=== PATIENT | female | born 1935 | race Two or more races ===

== ENCOUNTER 2016-11-15 12:13 | Emergency (ER) | payer OTHER ==
[~2016-11-15] VITALS: Ht 121.9 cm; Wt 48.5 kg
[~2016-11-15 12:13] MED LIST: ALOG1TAB8 PO; ATOR40TA PO; LISI40TA4 PO
[2016-11-15 13:18] VITALS: BP 126/62
[2016-11-15] MEDS ORDERED: HYDROCODONE/APAP 5/325MG 1 EACH TABLET PO ONE (14:30)
[2016-11-15] MEDS ORDERED: HYDROCODONE/APAP 5/325MG 1 EACH TABLET ONE (14:32)
== END 2016-11-15 15:55 | disposition home or self-care (01) ==
LOC: ER 12:16
DX: M25.511 Pain in right shoulder (principal); E11.9 Type 2 diabetes mellitus without complications; I10 Essential (primary) hypertension; M19.90 Unspecified osteoarthritis, unspecified site; M81.0 Age-related osteoporosis without current pathological fracture; F17.200 Nicotine dependence, unspecified, uncomplicated
CPT/HCPCS: 73030; 99284; A4606; Z7610

== ENCOUNTER 2017-03-26 17:35 | Inpatient (IN) | payer OTHER ==
[~2017-03-26] VITALS: Ht 165.1 cm; Wt 53.5 kg
[2017-03-26] VITALS (9 sets, daily range): BP systolic 81–137; BP diastolic 45–67
[2017-03-26] MEDS ORDERED: methylPREDNISolone SOD SUCC 125 MG/2ML VIAL ONE (18:00)
[2017-03-26] MEDS ORDERED: IV NS 0.9% 1,000 ML ONE (18:00)
[2017-03-26] MEDS ORDERED: IPRATROPIUM NEB FS 0.5 MG/2.5 ML AMPUL.NEB NEB ONE ×2 (18:00→19:00)
[2017-03-26] MEDS ORDERED: IV SET PRIMARY 1 EA INFUS.SET MC ONE (18:00)
[2017-03-26] MEDS ORDERED: IV NS 0.9% 1,000 ML BAG IV ONE (18:00)
[2017-03-26] MEDS ORDERED: methylPREDNISolone SOD SUCC 125 MG/2ML VIAL IV ONE (18:00)
[2017-03-26] MEDS ORDERED: ALBUTEROL FS 2.5 MG/3 ML VIAL.NEB NEB ONE ×2 (18:00→19:00)
[2017-03-26] MEDS ORDERED: IPRATROPIUM NEB FS 0.5 MG/2.5 ML AMPUL.NEB ONE ×2 (18:04→19:01)
[2017-03-26] MEDS ORDERED: ALBUTEROL FS 2.5 MG/3 ML VIAL.NEB ONE ×2 (18:04→19:01)
[2017-03-26 18:13] LABS: BASOPHILS % (AUTO) 0.7 % (0.0-2.0); EOSINOPHILS # (AUTO) 0.4 /CMM (0.0-0.7); EOSINOPHILS % (AUTO) 6.8 % (0.0-6.0); HEMATOCRIT 40 % (33-45); HEMOGLOBIN 12.9 g/dL (11.5-14.8); LYMPHOCYTES # (AUTO) 0.8 /CMM (0.8-4.8); LYMPHOCYTES % (AUTO) 14.1 % (20.0-44.0); MEAN CORPUSCULAR HEMOGLOBIN 31 PG (26.0-33.0); MEAN CORPUSCULAR HGB CONC 32 g/dl (31.0-36.0); MEAN CORPUSCULAR VOLUME 95 fL (82-100); MONOCYTES # (AUTO) 0.4 /CMM (0.1-1.30); MONOCYTES % (AUTO) 7.8 % (2.0-12.0); NEUTROPHILS # (AUTO) 3.8 /CMM (1.8-8.9); NEUTROPHILS % (AUTO) 70.6 % (43.0-81.0); PLATELET COUNT (AUTO) 307 /CMM (150-450); RDW COEFFICIENT OF VARIATION 16.2 (11.5-15.0); RED BLOOD CELL COUNT(AUTO) 4.22 MIL/uL (4.0-5.2); WHITE BLOOD COUNT (AUTO) 5.4 K/uL (4.3-11.0)
[2017-03-26 18:20] LABS: CALCIUM, SERUM 8.2 mg/dL (8.5-10.1); CREATININE 0.8 mg/dL (0.6-1.3); POTASSIUM 3.9 mmol/L (3.5-5.1)
[2017-03-26 18:31] LABS: TROPONIN I 1.058 ng/mL (0.00-0.056)
[2017-03-26] MEDS ORDERED: DAPA10TA PO (18:37)
[2017-03-26] MEDS ORDERED: ASPIRIN 81 MG TAB.CHEW ONE (18:42)
[2017-03-26] MEDS ORDERED: ASPIRIN 81 MG TAB.CHEW PO ONE (19:00)
[2017-03-26] MEDS ORDERED: ONDANSETRON HCL/PF 4 MG/2 ML VIAL ONE (19:12)
[2017-03-26] MEDS ORDERED: MORPHINE SULFATE INJ 4 MG/ML DISP.SYRIN ONE (19:12)
[2017-03-26] MEDS ORDERED: MORPHINE SULFATE INJ 2 MG/ML DISP.SYRIN IV ONE (19:30)
[2017-03-26] MEDS ORDERED: ONDANSETRON HCL/PF - ER 4 MG/2 ML VIAL IV ONE (19:30)
[2017-03-26] MEDS ORDERED: PROPOFOL 20 ML IV ONE (19:37)
[2017-03-26] MEDS ORDERED: PROPOFOL 100 ML IV ONE (19:40)
[2017-03-26] MEDS ORDERED: IV SET PRIMARY PUMP SET 1 EA INFUS.SET MC ONE ×2 (19:41→22:05)
[2017-03-26] MEDS ORDERED: PROPOFOL 100 ML IV PRN ×2 (20:00→22:30)
[2017-03-26] MEDS ORDERED: PROPOFOL 200 MG/20 ML VIAL IV ONE (20:00)
[2017-03-26] MEDS ORDERED: HEPARIN SODIUM,PORCINE/PF 50 UNIT/5 ML DISP.SYRIN IV ONE (20:30)
[2017-03-26] MEDS ORDERED: HEPARIN SODIUM, PORCINE 5000 UNITS/1 ML VIAL ONE (20:38)
[2017-03-26] MEDS ORDERED: FUROSEMIDE 40 MG/4 ML VIAL IV SCH (21:30)
[2017-03-26] MEDS: ASPIRIN 325 MG TABLET PO SCH (21:30)
[2017-03-26] MEDS: METOPROLOL TARTRATE 25 MG TABLET PO SCH (21:30)
[2017-03-26 21:55] LABS: APPEARANCE,URINE CLEAR (CLEAR); BILIRUBIN,URINE NEGATIVE (NEGATIVE); BLOOD, URINE TRACE Ery/uL (NEGATIVE); COLOR,URINE YELLOW (YELLOW); KETONES,URINE NEGATIVE (NEGATIVE); LEUKOCYTE ESTERASE ,URINE NEGATIVE (NEGATIVE); NITRITE, URINE NEGATIVE (NEGATIVE); PROTEIN,URINE 1+ mg/dl (NEGATIVE); UGLUCOSE 3+ mg/dL (NEGATIVE); UROBILINOGEN,URINE 0.2 EU/dL (0.2)
[2017-03-26 22:00] LABS: BACTERIA,URINE Rare /HPF (None Seen); SQUAMOUS EPITHELIAL CELL,UR Few /HPF (None Seen); WBC,URINE NONE SEEN /HPF (0-3)
[2017-03-26] MEDS ORDERED: IPRATROPIUM NEB FS 0.5 MG/2.5 ML AMPUL.NEB NEB PRN (22:00)
[2017-03-26] MEDS ORDERED: ATORVASTATIN 40 MG TABLET ONE (22:04)
[2017-03-26] MEDS ORDERED: PANTOPRAZOLE 40 MG VIAL ONE (22:04)
[2017-03-26] MEDS ORDERED: FUROSEMIDE 20 MG/2 ML VIAL ONE (22:04)
[2017-03-26] MEDS ORDERED: CLOPIDOGREL BISULFATE 75 MG TABLET ONE (22:04)
[2017-03-26] MEDS: CLOPIDOGREL BISULFATE 75 MG TABLET PO SCH (22:13)
[2017-03-26] MEDS: PANTOPRAZOLE 40 MG VIAL IV SCH (22:13)
[2017-03-26] MEDS: ATORVASTATIN 40 MG TABLET PO SCH (22:13)
[2017-03-26] MEDS: FUROSEMIDE 20 MG/2 ML VIAL IV SCH (22:14)
[2017-03-26] MEDS ORDERED: HEPARIN INFUSION/D5W 500 ML IV ONE (22:26)
[2017-03-26 22:30] LABS: INR 0.95 (0.87-1.13); PROTHROMBIN TIME 10.1 SECS (9.5-12.7)
[2017-03-26] MEDS ORDERED: NOREPINEPHRINE 16 MG in IV D5W 500 ML IV PRN (22:30)
[2017-03-26] MEDS: HEPARIN INFUSION/D5W 500 ML IV PRN (22:44)
[2017-03-27] VITALS (56 sets, daily range): BP systolic 84–116; BP diastolic 44–60
[2017-03-27] MEDS ORDERED: INSULIN REGULAR, HUMAN 100 UNIT/ML 3 ML VIAL SQ PRN (01:00)
[2017-03-27] MEDS ORDERED: DEXTROSE 50%-WATER 50 ML DISP.SYRIN IV PRN (01:00)
[2017-03-27 05:12] LABS: EOSINOPHILS % (AUTO) 0.4 % (0.0-6.0); HEMATOCRIT 39 % (33-45); HEMOGLOBIN 12.7 g/dL (11.5-14.8); LYMPHOCYTES # (AUTO) 0.2 /CMM (0.8-4.8); LYMPHOCYTES % (AUTO) 2.6 % (20.0-44.0); MEAN CORPUSCULAR HEMOGLOBIN 31 PG (26.0-33.0); MEAN CORPUSCULAR HGB CONC 33 g/dl (31.0-36.0); MEAN CORPUSCULAR VOLUME 96 fL (82-100); MONOCYTES # (AUTO) 0.2 /CMM (0.1-1.30); MONOCYTES % (AUTO) 1.6 % (2.0-12.0); NEUTROPHILS # (AUTO) 8.9 /CMM (1.8-8.9); NEUTROPHILS % (AUTO) 95.4 % (43.0-81.0); PLATELET COUNT (AUTO) 276 /CMM (150-450); RDW COEFFICIENT OF VARIATION 15.7 (11.5-15.0); RED BLOOD CELL COUNT(AUTO) 4.05 MIL/uL (4.0-5.2); WHITE BLOOD COUNT (AUTO) 9.3 K/uL (4.3-11.0)
[2017-03-27] MEDS: PROPOFOL 100 ML IV PRN ×3 (05:20→18:28)
[2017-03-27 05:27] LABS: ALBUMIN 2.9 g/dL (3.4-5.0); BILIRUBIN,TOTAL 0.3 mg/dL (0.2-1.0); CALCIUM, SERUM 7.6 mg/dL (8.5-10.1); CREATININE 0.8 mg/dL (0.6-1.3); POTASSIUM 4.2 mmol/L (3.5-5.1); TOTAL PROTEIN, SERUM 5.7 g/dL (6.4-8.2)
[2017-03-27] MEDS ORDERED: HEPARIN SODIUM, PORCINE 5000 UNITS/1 ML VIAL ONE (05:28)
[2017-03-27] MEDS ORDERED: HEPARIN SODIUM, PORCINE 5000 UNITS/1 ML VIAL IV ONE (05:30)
[2017-03-27] MEDS: BLOOD SUGAR DIAGNOSTIC 1 EACH STRIP IN SCH ×4 (05:46→23:46)
[2017-03-27] MEDS ORDERED: ALBUTEROL HALF STRENGTH 1.25 MG/3 ML VIAL.NEB NEB PRN (07:35)
[2017-03-27 07:56] LABS: ABG BASE EXCESS -7.1 mmol/L; ABG OXYGEN SATURATION 94.2 % (92.0-98.5); ABG PCO2 42.3 mmHg (35.0-45.0); ABG PH 7.278 (7.350-7.450); COHb 1.1 % (0.5-1.5); MetHb 0.7 % (0.0-1.5); O2Hb 92.5 % (94.0-97.0); PEEP,BG 5 cm H2O; SITE, ABG Right Radial; VENT MODE, BG A/C 16 400 80% +5; VT, ABG 400 mL
[2017-03-27] MEDS: METOPROLOL TARTRATE 25 MG TABLET PO SCH ×2 (08:06→20:36)
[2017-03-27] MEDS: ASPIRIN 325 MG TABLET PO SCH (08:06)
[2017-03-27] MEDS: FUROSEMIDE 20 MG/2 ML VIAL IV SCH ×2 (08:06→17:17)
[2017-03-27] MEDS: CLOPIDOGREL BISULFATE 75 MG TABLET PO SCH (08:06)
[2017-03-27 09:58] LABS: ABG BASE EXCESS -2.5 mmol/L; ABG PCO2 39.8 mmHg (35.0-45.0); ABG PO2 86.2 mmHg (75.0-100.0); AaDO2 225.5 mmHg; COHb 1.1 % (0.5-1.5); MetHb 0.8 % (0.0-1.5); O2Hb 94.2 % (94.0-97.0); PEEP,BG 5 cm H2O; SITE, ABG Right Radial; VT, ABG 400 mL
[2017-03-27] MEDS ORDERED: IV SET PRIMARY PUMP SET 1 EA INFUS.SET MC ONE ×2 (13:36→19:13)
[2017-03-27] MEDS: HEPARIN INFUSION/D5W 500 ML IV PRN (18:28)
[2017-03-27] MEDS: ATORVASTATIN 40 MG TABLET PO SCH (21:26)
[2017-03-27] MEDS: PANTOPRAZOLE 40 MG VIAL IV SCH (21:26)
[2017-03-28] VITALS (46 sets, daily range): BP systolic 93–159; BP diastolic 44–86
[2017-03-28 04:37] LABS: BASOPHILS % (AUTO) 0.5 % (0.0-2.0); EOSINOPHILS % (AUTO) 0.1 % (0.0-6.0); HEMATOCRIT 39 % (33-45); HEMOGLOBIN 12.8 g/dL (11.5-14.8); LYMPHOCYTES # (AUTO) 0.8 /CMM (0.8-4.8); LYMPHOCYTES % (AUTO) 7.7 % (20.0-44.0); MEAN CORPUSCULAR HEMOGLOBIN 31 PG (26.0-33.0); MEAN CORPUSCULAR HGB CONC 33 g/dl (31.0-36.0); MEAN CORPUSCULAR VOLUME 94 fL (82-100); MONOCYTES # (AUTO) 0.7 /CMM (0.1-1.30); MONOCYTES % (AUTO) 7.3 % (2.0-12.0); NEUTROPHILS # (AUTO) 8.4 /CMM (1.8-8.9); NEUTROPHILS % (AUTO) 84.4 % (43.0-81.0); PLATELET COUNT (AUTO) 278 /CMM (150-450); RDW COEFFICIENT OF VARIATION 15.9 (11.5-15.0); RED BLOOD CELL COUNT(AUTO) 4.11 MIL/uL (4.0-5.2); WHITE BLOOD COUNT (AUTO) 9.9 K/uL (4.3-11.0)
[2017-03-28] MEDS: PROPOFOL 100 ML IV PRN (04:38)
[2017-03-28 04:57] LABS: ALBUMIN 2.8 g/dL (3.4-5.0); BILIRUBIN,TOTAL 0.4 mg/dL (0.2-1.0); CALCIUM, SERUM 7.8 mg/dL (8.5-10.1); CREATININE 0.9 mg/dL (0.6-1.3); MAGNESIUM 2.2 mg/dL (1.8-2.4); PHOSPHORUS 3.5 mg/dL (2.5-4.9); POTASSIUM 3.9 mmol/L (3.5-5.1); TOTAL PROTEIN, SERUM 5.6 g/dL (6.4-8.2)
[2017-03-28 05:08] LABS: TROPONIN I 5.638 ng/mL (0.00-0.056)
[2017-03-28] MEDS: BLOOD SUGAR DIAGNOSTIC 1 EACH STRIP IN SCH ×3 (05:37→17:11)
[2017-03-28] MEDS: FUROSEMIDE 20 MG/2 ML VIAL IV SCH ×2 (08:32→17:05)
[2017-03-28] MEDS: ASPIRIN 325 MG TABLET PO SCH (08:32)
[2017-03-28] MEDS: CLOPIDOGREL BISULFATE 75 MG TABLET PO SCH (08:33)
[2017-03-28] MEDS ORDERED: DC PROPOFOL WHEN EXTUBATED XX PRN (09:00)
[2017-03-28] MEDS ORDERED: CLOPIDOGREL BISULFATE 75 MG TABLET PO SCH (09:00)
[2017-03-28] MEDS: FUROSEMIDE 40 MG/4 ML VIAL IV SCH ×2 (09:32→12:40)
[2017-03-28] MEDS: METOPROLOL TARTRATE 25 MG TABLET PO SCH ×2 (09:32→21:05)
[2017-03-28 11:45] LABS: ABG BASE EXCESS 1.1 mmol/L; ABG PCO2 39.4 mmHg (35.0-45.0); ABG PH 7.427 (7.350-7.450); ABG PO2 98.4 mmHg (75.0-100.0); AaDO2 213.8 mmHg; COHb 0.7 % (0.5-1.5); MetHb 0.6 % (0.0-1.5); O2Hb 95.7 % (94.0-97.0); PEEP,BG 5 cm H2O; SITE, ABG Right Radial; VENT MODE, BG simv psv 12; VT, ABG 400 mL
[2017-03-28] MEDS ORDERED: ONDANSETRON HCL/PF 4 MG/2 ML VIAL IV PRN (12:00)
[2017-03-28] MEDS ORDERED: ACETAMINOPHEN 650 MG/20.3 ML UDC NG PRN (17:00)
[2017-03-28] MEDS: HEPARIN INFUSION/D5W 500 ML IV PRN (17:15)
[2017-03-28] MEDS: ATORVASTATIN 40 MG TABLET PO SCH (21:04)
[2017-03-28] MEDS: PANTOPRAZOLE 40 MG VIAL IV SCH (21:05)
[2017-03-29] VITALS (16 sets, daily range): BP systolic 101–121; BP diastolic 47–57
[2017-03-29] MEDS: BLOOD SUGAR DIAGNOSTIC 1 EACH STRIP IN SCH ×3 (00:29→12:06)
[2017-03-29 05:31] LABS: BASOPHILS % (AUTO) 0.4 % (0.0-2.0); EOSINOPHILS # (AUTO) 0.1 /CMM (0.0-0.7); EOSINOPHILS % (AUTO) 0.8 % (0.0-6.0); HEMATOCRIT 41 % (33-45); HEMOGLOBIN 13.4 g/dL (11.5-14.8); LYMPHOCYTES # (AUTO) 0.6 /CMM (0.8-4.8); LYMPHOCYTES % (AUTO) 6.1 % (20.0-44.0); MEAN CORPUSCULAR HEMOGLOBIN 31 PG (26.0-33.0); MEAN CORPUSCULAR HGB CONC 33 g/dl (31.0-36.0); MEAN CORPUSCULAR VOLUME 95 fL (82-100); MONOCYTES # (AUTO) 0.6 /CMM (0.1-1.30); MONOCYTES % (AUTO) 6.4 % (2.0-12.0); NEUTROPHILS # (AUTO) 8.3 /CMM (1.8-8.9); NEUTROPHILS % (AUTO) 86.3 % (43.0-81.0); PLATELET COUNT (AUTO) 251 /CMM (150-450); RDW COEFFICIENT OF VARIATION 15.8 (11.5-15.0); RED BLOOD CELL COUNT(AUTO) 4.27 MIL/uL (4.0-5.2); WHITE BLOOD COUNT (AUTO) 9.6 K/uL (4.3-11.0)
[2017-03-29 05:57] LABS: ALANINE AMINOTRANSFERASE 51 U/L (12-78); ALBUMIN 2.8 g/dL (3.4-5.0); ALKALINE PHOSPHATASE 86 U/L (46-116); ASPARTATE AMINOTRANSFERASE 36 U/L (15-37); BILIRUBIN,TOTAL 0.5 mg/dL (0.2-1.0); CARBON DIOXIDE 30 mmol/L (21-32); CHLORIDE 107 mmol/L (98-107); CREATININE 0.7 mg/dL (0.6-1.3); GLUCOSE 121 mg/dL (74-106); MAGNESIUM 2.1 mg/dL (1.8-2.4); PHOSPHORUS 3.1 mg/dL (2.5-4.9); POTASSIUM 3.3 mmol/L (3.5-5.1); SODIUM SERUM 145 mmol/L (136-145); UREA NITROGEN, BLOOD 24 mg/dL (7-18)
[2017-03-29 05:59] LABS: TROPONIN I 4.215 ng/mL (0.00-0.056)
[2017-03-29] MEDS: ASPIRIN 325 MG TABLET PO SCH (08:05)
[2017-03-29] MEDS: POTASSIUM CHLORIDE 20 MEQ TAB.PRT.SR PO SCH ×2 (08:05→09:00)
[2017-03-29] MEDS: CLOPIDOGREL BISULFATE 75 MG TABLET PO SCH (08:05)
[2017-03-29] MEDS: METOPROLOL TARTRATE 25 MG TABLET PO SCH (08:07)
[2017-03-29] MEDS ORDERED: POTASSIUM CHLORIDE 20 MEQ TAB.PRT.SR PO ONE (08:30)
[2017-03-29] MEDS ORDERED: CARVEDILOL 3.125 MG TABLET PO SCH (09:00)
[2017-03-29] MEDS ORDERED: LISINOPRIL (5MG) 5 MG TABLET PO SCH (09:00)
[2017-03-29] MEDS ORDERED: ENOXAPARIN SODIUM 40 MG/0.4 ML DISP.SYRIN SQ SCH (09:00)
== END 2017-03-29 15:35 | disposition short-term general hospital (02) | DRG 208 ==
LOC: ER 17:36 → ICU 20:28
PROVIDERS: ADMIT Internal Medicine; ATTEND Internal Medicine
PROC: 5A1945Z Respiratory Ventilation, 24-96 Consecutive Hours (ICD-10-PCS; principal; 2017-03-26)
PROC: 0BH17EZ Insertion of Endotracheal Airway into Trachea, Via Natural or Artificial Opening (ICD-10-PCS; 2017-03-26)
PROC: 05H533Z Insertion of Infusion Device into Right Subclavian Vein, Percutaneous Approach (ICD-10-PCS; 2017-03-26)
PROC: 02HV33Z Insertion of Infusion Device into Superior Vena Cava, Percutaneous Approach (ICD-10-PCS; 2017-03-27)
PROC: B548ZZA Ultrasonography of Superior Vena Cava, Guidance (ICD-10-PCS; 2017-03-27)
DX: J96.01 Acute respiratory failure with hypoxia (principal); I21.09 ST elevation (STEMI) myocardial infarction involving other coronary artery of anterior wall; J18.9 Pneumonia, unspecified organism; I50.21 Acute systolic (congestive) heart failure; J44.0 Chronic obstructive pulmonary disease with (acute) lower respiratory infection; I50.1 Left ventricular failure, unspecified; J44.1 Chronic obstructive pulmonary disease with (acute) exacerbation; I11.0 Hypertensive heart disease with heart failure; E11.9 Type 2 diabetes mellitus without complications; F17.210 Nicotine dependence, cigarettes, uncomplicated; E78.5 Hyperlipidemia, unspecified; I25.10 Atherosclerotic heart disease of native coronary artery without angina pectoris; M81.0 Age-related osteoporosis without current pathological fracture; Z98.61 Coronary angioplasty status; Z79.899 Other long term (current) drug therapy; E87.6 Hypokalemia
CPT/HCPCS: 31720; 36415; 36569; 36600; 71010-TC; 80048-TC; 80053-TC; 80061-TC; 81000-TC; 82803-TC; 82962-TC; 83735-TC; 83880; 84100-TC; 84484-TC; 85025-TC; 85610-TC; 85730-TC; 93307-TC; 94003-TC; 94799-TC; A4217; A4606; C1751; C9113; J1642; J1644; J1650; J1815; J1940; J2270; J2405; J2704; J2930; J3490; J7030; Z7610

== ENCOUNTER 2017-10-21 16:44 | Emergency (ER) | payer OTHER ==
[~2017-10-21] VITALS: Ht 147.3 cm; Wt 45.4 kg
[~2017-10-21 16:44] MED LIST changes: -ALOG1TAB8 PO; +DAPA10TA PO
[2017-10-21 16:50] VITALS: BP 128/67
[2017-10-21] MEDS ORDERED: diphenhydrAMINE HCL 50 MG/ML VIAL ONE (17:49)
[2017-10-21] MEDS ORDERED: diphenhydrAMINE HCL 50 MG/ML VIAL IM ONE (18:00)
== END 2017-10-21 20:08 | disposition home or self-care (01) ==
LOC: ER 16:48
DX: R21 Rash and other nonspecific skin eruption (principal); I10 Essential (primary) hypertension; E11.9 Type 2 diabetes mellitus without complications; M81.0 Age-related osteoporosis without current pathological fracture
CPT/HCPCS: 96372; 99283; A4606; J1200; Z7610

== ENCOUNTER 2018-08-09 09:45 | Emergency (ER) | payer OTHER ==
[~2018-08-09] VITALS: Ht 162.6 cm; Wt 54.4 kg
--- NOTE | 2018-08-09 10:00 | NUR ---
PT BIB FAMILY TO ER BED 9. PRESENTS W/ CHIN SWELLING, R KNEE ABRASION S/P GLF. POSSIBLE SYNCOPE. PT UNABLE TO RECALL WHAT HAPPEN. PER FAMILY PT "FAINTED" FOR A FEW MINUTES AT HOME AFTER THE FALL. GOWNED AND PLACED ON MONITOR. FAMILY STATES UTD W/ TETANUS SHOT. AWAITING MD FAIR.
--- NOTE | 2018-08-09 10:01 | NUR ---
DR MONTERO AT BEDSIDE FOR EVAL.
[2018-08-09 10:16] LABS: BASOPHILS % (AUTO) 0.3 % (0.0-2.0); EOSINOPHILS % (AUTO) 2.5 % (0.0-6.0); HEMATOCRIT 43 % (33-45); HEMOGLOBIN 14.2 g/dL (11.5-14.8); LYMPHOCYTES # (AUTO) 0.6 /CMM (0.8-4.8); LYMPHOCYTES % (AUTO) 11.7 % (20.0-44.0); MEAN CORPUSCULAR HGB CONC 33 g/dl (31.0-36.0); MEAN CORPUSCULAR VOLUME 92 fL (82-100); MONOCYTES # (AUTO) 0.4 /CMM (0.1-1.30); MONOCYTES % (AUTO) 6.4 % (2.0-12.0); NEUTROPHILS # (AUTO) 4.4 /CMM (1.8-8.9); NEUTROPHILS % (AUTO) 79.1 % (43.0-81.0); PLATELET COUNT (AUTO) 211 /CMM (150-450); RDW COEFFICIENT OF VARIATION 15.4 (11.5-15.0); RED BLOOD CELL COUNT(AUTO) 4.68 MIL/uL (4.0-5.2); WHITE BLOOD COUNT (AUTO) 5.5 K/uL (4.3-11.0)
--- NOTE | 2018-08-09 10:22 | NUR ---
PT TO RADIOLOGY FOR HEAD, CERVICAL AND FACIAL CT SCAN VIA [facility].
[2018-08-09 10:25] LABS: CARBON DIOXIDE 32 mmol/L (21-32); CHLORIDE 108 mmol/L (98-107); GLUCOSE 125 mg/dL (74-106); POTASSIUM 4.5 mmol/L (3.5-5.1); SODIUM SERUM 145 mmol/L (136-145); UREA NITROGEN, BLOOD 15 mg/dL (7-18)
[2018-08-09 10:36] LABS: INR 0.96 (0.85-1.15)
[2018-08-09] MEDS: BACITRACIN ZINC OINT PACKET 1 EA PACKET TP ONE (12:02)
--- NOTE | 2018-08-09 12:09 | NUR ---
Patient discharged to home in stable condition. Written and verbal after care instructions given. Patient verbalizes understanding of instruction.IV removed. Catheter intact and site benign. Pressure and 4x4 applied to site. No bleeding noted.
[2018-08-09 12:10] VITALS: BP 142/77
== END 2018-08-09 12:12 | disposition home or self-care (01) ==
LOC: ER 09:49
DX: S00.83XA Contusion of other part of head, initial encounter (principal); S00.531A Contusion of lip, initial encounter; S80.211A Abrasion, right knee, initial encounter; E78.00 Pure hypercholesterolemia, unspecified; R55 Syncope and collapse; M81.0 Age-related osteoporosis without current pathological fracture; E11.9 Type 2 diabetes mellitus without complications; F17.200 Nicotine dependence, unspecified, uncomplicated; Z98.890 Other specified postprocedural states; W01.198A Fall on same level from slipping, tripping and stumbling with subsequent striking against other object, initial encounter; Y93.01 Activity, walking, marching and hiking; Y92.89 Other specified places as the place of occurrence of the external cause; Y99.8 Other external cause status
CPT/HCPCS: 36415; 70450; 70486; 72125; 80048; 85025; 85730; 93005; 99285; A4606; A6402; Z7610

== ENCOUNTER 2018-12-22 13:27 | Emergency (ER) | payer OTHER ==
[~2018-12-22] VITALS: Ht 147.3 cm; Wt 55.3 kg
--- NOTE | 2018-12-22 13:46 | NUR ---
PT BIB DTR FROM HOME FOR COUGH AND WHEEZING, PT AAOX4, PT ON MONITOR, VSS, NAD NOTED, MD AND RT AT BEDSIDE
[2018-12-22] MEDS ORDERED: predniSONE 20 MG TABLET PO ONE (14:30)
[2018-12-22] MEDS ORDERED: IPRATROPIUM NEB FS 0.5 MG/2.5 ML AMPUL.NEB NEB ONE (14:30)
[2018-12-22] MEDS ORDERED: ALBUTEROL FS 2.5 MG/3 ML VIAL.NEB NEB ONE (14:30)
[2018-12-22] MEDS ORDERED: IV NS 0.9% 500 ML BAG IV ONE (14:30)
[2018-12-22 14:43] LABS: BASOPHILS % (AUTO) 1.2 % (0.0-2.0); EOSINOPHILS % (AUTO) 3.4 % (0.0-6.0); HEMATOCRIT 41 % (33-45); HEMOGLOBIN 13.3 g/dL (11.5-14.8); LYMPHOCYTES # (AUTO) 0.2 /CMM (0.8-4.8); LYMPHOCYTES % (AUTO) 6.5 % (20.0-44.0); MEAN CORPUSCULAR HGB CONC 32 g/dl (31.0-36.0); MEAN CORPUSCULAR VOLUME 96 fL (82-100); MONOCYTES # (AUTO) 0.3 /CMM (0.1-1.30); MONOCYTES % (AUTO) 9.1 % (2.0-12.0); NEUTROPHILS # (AUTO) 2.6 /CMM (1.8-8.9); NEUTROPHILS % (AUTO) 79.8 % (43.0-81.0); PLATELET COUNT (AUTO) 197 /CMM (150-450); RED BLOOD CELL COUNT(AUTO) 4.29 MIL/uL (4.0-5.2); WHITE BLOOD COUNT (AUTO) 3.2 K/uL (4.3-11.0)
[2018-12-22] MEDS ORDERED: ALBUTEROL FS 2.5 MG/3 ML VIAL.NEB ONE (14:45)
[2018-12-22] MEDS ORDERED: IPRATROPIUM NEB FS 0.5 MG/2.5 ML AMPUL.NEB ONE (14:45)
[2018-12-22] MEDS ORDERED: predniSONE 20 MG TABLET ONE (14:48)
[2018-12-22 14:52] LABS: CALCIUM, SERUM 8.9 mg/dL (8.5-10.1); CARBON DIOXIDE 31 mmol/L (21-32); CHLORIDE 106 mmol/L (98-107); CREATININE 0.9 mg/dL (0.6-1.3); GLUCOSE 80 mg/dL (74-106); SODIUM SERUM 141 mmol/L (136-145); UREA NITROGEN, BLOOD 10 mg/dL (7-18)
[2018-12-22 14:57] LABS: ALANINE AMINOTRANSFERASE 15 U/L (12-78); ALBUMIN 3.4 g/dL (3.4-5.0); ALKALINE PHOSPHATASE 62 U/L (46-116); ASPARTATE AMINOTRANSFERASE 15 U/L (15-37); BILIRUBIN,DIRECT 0.1 mg/dL (0.0-0.2); BILIRUBIN,TOTAL 0.4 mg/dL (0.2-1.0)
--- NOTE | 2018-12-22 16:11 | NUR ---
Patient discharged to home in stable condition. Written and verbal after care instructions given. Patient verbalizes understanding of instruction. IV removed. Catheter intact and site benign. Pressure and 4x4 applied to site. No bleeding noted.
[2018-12-22 16:13] VITALS: BP 123/88
== END 2018-12-22 16:16 | disposition home or self-care (01) ==
LOC: ER 13:30
DX: J44.1 Chronic obstructive pulmonary disease with (acute) exacerbation (principal); R91.8 Other nonspecific abnormal finding of lung field; F17.210 Nicotine dependence, cigarettes, uncomplicated; I48.91 Unspecified atrial fibrillation; I44.0 Atrioventricular block, first degree; I10 Essential (primary) hypertension; E78.00 Pure hypercholesterolemia, unspecified; E11.9 Type 2 diabetes mellitus without complications; Z95.0 Presence of cardiac pacemaker; Z85.118 Personal history of other malignant neoplasm of bronchus and lung; Z98.890 Other specified postprocedural states
CPT/HCPCS: 36415; 71045; 80048; 80076; 84484; 85025; 87804 ×2; 93005; 94644; 99285; A4606; J7040; J7512; 87400

== ENCOUNTER 2022-09-13 17:54 | Inpatient (IN) | payer OTHER ==
[~2022-09-13] VITALS: Ht 152.4 cm; Wt 59.9 kg
[~2022-09-13 17:54] MED LIST changes: +LISI40TA15 PO; -LISI40TA4 PO
--- NOTE | 2022-09-13 18:00 | NUR ---
BIB SON C/O SOB SINCE LAST NIGHT, 2 EPISODE OF GLF TODAY D/T WEAKNESS. PT SON STATED THAT SHE HIT HER HEAD -LOC +BT. ATTACHED TO MONITOR, SATTING AT 88% ON ROOM AIR. 2L NC APPLIED AND SATTING AT 99%, SON STATED SHE DOES NOT USE OXYGEN AT HOME. PT HAS HX OF LUNG CANCER. WARM BLANKET PROVIDED FOR COMFORT. DR MOTA AT BEDSIDE. AWAITING MD ORDERS.
--- NOTE | 2022-09-13 18:05 | NUR ---
IV ESTABLISHED R 20G. LABS COLLECTED AND SENT.
[2022-09-13] MEDS ORDERED: methylPREDNISolone SOD SUCC 125 MG/2ML VIAL ONE (18:24)
[2022-09-13] MEDS ORDERED: IPRATROPIUM NEB FS 0.5 MG/2.5 ML AMPUL.NEB ONE (18:26)
[2022-09-13] MEDS ORDERED: ALBUTEROL FS 2.5 MG/3 ML VIAL.NEB ONE (18:26)
[2022-09-13] MEDS ORDERED: ALBUTEROL FS 2.5 MG/3 ML VIAL.NEB CONTNEB ONE (18:30)
[2022-09-13] MEDS ORDERED: methylPREDNISolone SOD SUCC 125 MG/2ML VIAL IV ONE (18:30)
[2022-09-13] MEDS ORDERED: IPRATROPIUM NEB FS 0.5 MG/2.5 ML AMPUL.NEB NEB ONE (18:30)
[2022-09-13] MEDS ORDERED: IV NS 0.9% 1,000 ML IV ONE (18:30)
--- NOTE | 2022-09-13 18:31 | NUR ---
COVID TEST AND RAPID FLU COLLECTED AND SENT
[2022-09-13] MEDS ORDERED: CLOP75TA15 PO (18:43)
[2022-09-13] MEDS ORDERED: FOLI0.4T6 PO (18:43)
[2022-09-13] MEDS ORDERED: ESCI10TA PO (18:43)
[2022-09-13] MEDS ORDERED: FURO40TA5 PO (18:43)
[2022-09-13] MEDS ORDERED: ATOR40TA PO (18:43)
[2022-09-13] MEDS ORDERED: CARV3.122 PO (18:43)
[2022-09-13] MEDS ORDERED: UMEC1BLS INH (18:43)
[2022-09-13] MEDS ORDERED: SITA50TA PO (18:43)
[2022-09-13] MEDS ORDERED: MELO-105 PO (18:43)
[2022-09-13] MEDS ORDERED: SACU1TAB PO (18:43)
[2022-09-13] MEDS ORDERED: EMPA25TA PO (18:43)
[2022-09-13] MEDS ORDERED: GLIP5TAB13 PO (18:43)
[2022-09-13] MEDS ORDERED: CYAN-51 PO (18:43)
[2022-09-13] MEDS ORDERED: POTA10TA10 PO (18:43)
[2022-09-13] MEDS ORDERED: ALBU18HF2 IH (18:43)
[2022-09-13] MEDS ORDERED: GABA-532 PO (18:43)
[2022-09-13] MEDS ORDERED: CHOL100043 PO (19:01)
[2022-09-13] MEDS ORDERED: VITA1TAB56 PO (19:01)
[2022-09-13 19:25] LABS: ALBUMIN 4.1 g/dL (3.4-5.0); BILIRUBIN,DIRECT 0.2 mg/dL (0.0-0.2); BILIRUBIN,TOTAL 0.9 mg/dL (0.2-1.0); CALCIUM, SERUM 9.2 mg/dL (8.5-10.1); CREATININE 1.1 mg/dL (0.6-1.3); POTASSIUM 4.1 mmol/L (3.5-5.1); TOTAL PROTEIN, SERUM 7.5 g/dL (6.4-8.2)
--- NOTE | 2022-09-13 19:45 | NUR ---
RECEIVED PT IN ER ROOM 8. PT IS ALERT AND ORIENTED FROM HOME. PT DENIES ANY DISCOMFORT AT THIS TIME. SHE IS CONNECTED TO POX AND HEART MONITOR. VITAL SIGNS ARE WITHIN LIMITS. WILL CONTINUE TO MONITOR
[2022-09-13 19:55] LABS: BASOPHILS # (AUTO) 0.1 K/uL (0.0-0.2); BASOPHILS % (AUTO) 0.6 % (0.0-2.0); EOSINOPHILS % (AUTO) 0.2 % (0.0-6.0); HEMATOCRIT 43 % (33-45); HEMOGLOBIN 14.1 g/dL (11.5-14.8); LYMPHOCYTES # (AUTO) 0.3 K/uL (0.8-4.8); LYMPHOCYTES % (AUTO) 2.7 % (20.0-44.0); MEAN CORPUSCULAR HGB CONC 33 g/dl (31.0-36.0); MEAN CORPUSCULAR VOLUME 97 fL (82-100); MONOCYTES # (AUTO) 0.3 K/uL (0.1-1.30); MONOCYTES % (AUTO) 3.4 % (2.0-12.0); NEUTROPHILS # (AUTO) 9.1 K/uL (1.8-8.9); NEUTROPHILS % (AUTO) 93.1 % (43.0-81.0); PLATELET COUNT (AUTO) 172 K/uL (150-450); RED BLOOD CELL COUNT(AUTO) 4.46 MIL/uL (4.0-5.2); WHITE BLOOD COUNT (AUTO) 9.8 K/uL (4.3-11.0)
--- NOTE | 2022-09-13 20:39 | NUR ---
DR BROOKS ON THE PHONE WITH DR HOLBROOK
[2022-09-13 21:49] VITALS: BP 96/50
--- NOTE | 2022-09-13 21:49 | NUR ---
ROOM 308-1
--- NOTE | 2022-09-13 22:12 | NUR ---
REPORT GIVEN TO WAQAR LARRY FOR JOSE
[2022-09-13 23:30] VITALS: BP 96/50
[2022-09-13] MEDS ORDERED: ENOXAPARIN SODIUM 40 MG/0.4 ML DISP.SYRIN SQ SCH (23:30)
[2022-09-13] MEDS ORDERED: HYDROCODONE/APAP 5/325MG TABLET PO PRN (23:30)
[2022-09-13] MEDS ORDERED: LEVOFLOXACIN 500 MG /D5W 100ML 500 MG in PREMIX 1 EA IV SCH (23:30)
[2022-09-13] MEDS ORDERED: ACETAMINOPHEN 325 MG TABLET PO PRN (23:30)
[2022-09-13] MEDS ORDERED: ZOLPIDEM TARTRATE 5 MG TABLET PO PRN (23:30)
[2022-09-13] MEDS ORDERED: DEXTROSE 50%-WATER 50 ML DISP.SYRIN IV PRN (23:30)
--- NOTE | 2022-09-13 23:30 | NUR ---
ADMISSION CREATIVE DESIGNER NOTES PT ARRIVED AT UNIT VIA GURNEY AT 2330. A/O X4 AND ABLE TO MAKE NEEDS KNOWN. ON O2 3L VIA NC TOLERATING WELL WITH NO S/S OF SOB OR LABORED BREATHING. PT DENIES ANY PAIN AT THIS TIME. PT NOTED WITH IV ASSESS ON THE RIGHT HAND #20G S/L FLUSHING WELL. NO SKIN DISCOLORATION OR WOUND UPON ASSESSMENT. ON TELE MONITOR SHOWING SR. RECOMMENDED FOR PT/OT THERAPY DUE TO UNSTEADY GAIT. PT ORIENTED TO UNIT AND ROOM. SAFETY PRECAUTIONS IN PLACE: BED LOCKED AND IN LOW POSITION; HOB ELEVATED FOR SAFETY; CALL LIGHT WITHIN REACH. WILL CONTINUE TO MONITOR AND ASSIST.
[2022-09-13] MEDS ORDERED: LEVOFLOXACIN 500 MG /D5W 100ML 500 MG in PREMIX 1 EA IV ONE (23:45)
[2022-09-13] MEDS ORDERED: LEVOFLOXACIN 500 MG /D5W 100ML 100 ML IV ONE (23:48)
[2022-09-14] MEDS: BLOOD SUGAR DIAGNOSTIC 1 EACH STRIP VI SCH ×5 (00:19→21:13)
[2022-09-14] MEDS: methylPREDNISolone SOD SUCC 40 MG/ML VIAL IV SCH ×4 (00:21→21:12)
[2022-09-14 00:26] VITALS: BP 117/52
[2022-09-14] MEDS: *INSULIN REGULAR(HUMULIN R)HUM 100 UNIT/ML VIAL SQ PRN (01:48)
[2022-09-14] MEDS: IPRATROPIUM NEB FS 0.5 MG/2.5 ML AMPUL.NEB NEB SCH ×4 (02:21→20:01)
[2022-09-14] MEDS: ALBUTEROL FS 2.5 MG/0.5 ML VIAL.NEB NEB SCH ×4 (02:21→20:01)
[2022-09-14 04:11] VITALS: BP 103/53
[2022-09-14 05:55] LABS: BASOPHILS % (AUTO) 0.1 % (0.0-2.0); HEMATOCRIT 39 % (33-45); HEMOGLOBIN 12.6 g/dL (11.5-14.8); LYMPHOCYTES # (AUTO) 0.2 K/uL (0.8-4.8); LYMPHOCYTES % (AUTO) 3.8 % (20.0-44.0); MEAN CORPUSCULAR HGB CONC 33 g/dl (31.0-36.0); MEAN CORPUSCULAR VOLUME 96 fL (82-100); MONOCYTES # (AUTO) 0.1 K/uL (0.1-1.30); MONOCYTES % (AUTO) 1.7 % (2.0-12.0); NEUTROPHILS # (AUTO) 5.8 K/uL (1.8-8.9); NEUTROPHILS % (AUTO) 94.4 % (43.0-81.0); PLATELET COUNT (AUTO) 151 K/uL (150-450); RED BLOOD CELL COUNT(AUTO) 4.01 MIL/uL (4.0-5.2); WHITE BLOOD COUNT (AUTO) 6.2 K/uL (4.3-11.0)
[2022-09-14 06:16] LABS: CALCIUM, SERUM 8.5 mg/dL (8.5-10.1); CARBON DIOXIDE 26 mmol/L (21-32); CHLORIDE 107 mmol/L (98-107); CREATININE 1.2 mg/dL (0.6-1.3); GLUCOSE 208 mg/dL (74-106); POTASSIUM 3.8 mmol/L (3.5-5.1); SODIUM SERUM 143 mmol/L (136-145); UREA NITROGEN, BLOOD 26 mg/dL (7-18)
[2022-09-14 06:25] LABS: CHOLESTEROL 166 mg/dL (<200); HDL CHOLESTEROL 57 mg/dL (40-60); LDL 99 mg/dL (0-99); THYROID STIMULATING HORMONE 0.489 uIU/mL (0.358-3.74); TRIGLYCERIDES 54 mg/dL (30-150)
[2022-09-14] MEDS: INSULIN REGULAR, HUMAN 100 UNIT/ML 3 ML VIAL SQ PRN ×4 (06:59→22:24)
[2022-09-14 07:00] VITALS: BP 101/41
--- NOTE | 2022-09-14 07:10 | NUR ---
TELE CLOSING RN NOTES PT AWAKE IN BED, AT THIS TIME. A/O X4 AND ABLE TO MAKE NEEDS KNOWN. STABLE ON ON O2 3L VIA NC TOLERATING WELL WITH NO S/S OF SOB OR LABORED BREATHING. PT DENIES ANY PAIN AT THIS TIME. IV ACCESS RIGHT HAND #20G S/L FLUSHING WELL. ON TELE MONITOR SHOWING SR WITH 1ST DEGREE BLOCK @ 69 BPM. ALL CARE PROVIDED AND ADMINISTERED MEDICATIONS TOLERATED WELL. SAFETY PRECAUTIONS MAINTAINED: BED LOCKED AND IN LOW POSITION; HOB ELEVATED FOR SAFETY; CALL LIGHT WITHIN REACH. WILL ENDORSE JOSE TO SAND TESTER NURSE.
--- NOTE | 2022-09-14 07:20 | NUR ---
RN OPENING NOTE RECEIVED PATIENT IN BED, AWAKE, A/O X4, VERBALLY RESPONSIVE. NO SIGNS OF ACUTE DISTRESS NOTED. ON O2 @ 3LPM VIA N/C, SPO2 @ 99%. STILL NOTED WITH COUGH. ON TELE MONITOR SHOWING SINUS RHYTHM WITH 1ST DEGREE AV BLOCK, HR @ 62. DENIES ANY CARDIAC DISTRESS NOTED. NOTED WITH IV ACCESS ON RIGHT HAND #20G, PATENT AND INTACT, SALINE LOCKED. SAFETY MEASURE IN PLACE, BED IN LOWEST AND LOCKED POSITION, SIDE RAILS UP X2, CALL LIGHT PLACED WITHIN EASY REACH. WILL CONTINUE TO MONITOR PATIENT.
[2022-09-14] MEDS ORDERED: FUROSEMIDE 40 MG/4 ML VIAL IV SCH (09:00)
[2022-09-14] MEDS: FUROSEMIDE 40 MG TABLET PO SCH (09:00)
--- NOTE | 2022-09-14 09:04 | NUR ---
RN NOTE LASIX 40 MG TABLET NOT ADMINISTERED, LASIX 40 MG IVP DOSE ALREADY GIVEN. DR. HOLBROOK AWARE.
[2022-09-14] MEDS: CARVEDILOL 3.125 MG TABLET PO SCH ×2 (09:30→16:28)
[2022-09-14] MEDS: ESCITALOPRAM OXALATE (10 MG) 10 MG TABLET PO SCH (09:54)
[2022-09-14] MEDS: CLOPIDOGREL BISULFATE 75 MG TABLET PO SCH (09:54)
[2022-09-14 12:30] VITALS: BP 119/48
[2022-09-14 16:00] VITALS: BP 86/47
[2022-09-14] MEDS: GABAPENTIN 100 MG CAPSULE PO SCH (16:28)
--- NOTE | 2022-09-14 19:00 | NUR ---
RN CLOSING NOTES PATIENT IN BED, AWAKE, A/O X4, VERBALLY RESPONSIVE. NO SIGNS OF ACUTE DISTRESS NOTED. REMAINS ON O2 @ 2LPM VIA N/C, SPO2 @ 98%. STILL NOTED WITH COUGH. DENIES ANY DIFFICULTY BREATHING. CONTINUE ON TELE MONITOR SHOWING SINUS RHYTHM WITH 1ST DEGREE AV BLOCK, HR @77 . DENIES ANY CHEST PAIN. IV ACCESS ON RIGHT HAND #20G, PATENT AND INTACT, SALINE LOCKED. SAFETY MEASURE MAINTAINED, BED IN LOWEST AND LOCKED POSITION, SIDE RAILS UP X2, CALL LIGHT PLACED WITHIN EASY REACH. WILL ENDORSE TO NEXT SHIFT FOR CONTINUITY OF CARE.
--- NOTE | 2022-09-14 19:05 | NUR ---
FABRICATION MIG WELDER OPENING NOTES RECEIVED PT IN BED, AWAKE AT THIS TIME, A/O X4, ABLE TO MAKE NEEDS KNOWN. FAMILY AT BEDSIDE. NO S/S OF SOB OR ACUTE DISTRESS NOTED. COUGH NOTED. ON O2 @ 2LPM VIA NC. ON TELE MONITOR SHOWING SINUS RHYTHM WITH 1ST DEGREE AV BLOCK, HR 83. C/O OF PAIN IN BUTTOCKS. PROVIDED PRN HYDROCODONE AND ASKED PT TO MOVE AROUND IN BED SAFELY. IV ACCESS RIGHT HAND #20G, PATENT AND INTACT, SL. SAFETY MEASURES IN PLACE: BED IN LOWEST AND LOCKED POSITION; SIDE RAILS UP X2; CALL LIGHT AND TRAY TABLE WITHIN REACH. WILL CONTINUE TO MONITOR AND ASSIST.
[2022-09-14 20:00] VITALS: BP 131/69
[2022-09-14] MEDS: SACUBITRIL PO SCH (21:08)
[2022-09-14] MEDS: VALSARTAN PO SCH (21:08)
[2022-09-14] MEDS ORDERED: ENOXAPARIN SODIUM 30 MG/0.3 ML DISP.SYRIN SQ SCH (22:00)
[2022-09-14] MEDS ORDERED: LEVOFLOXACIN 250 MG /D5W 50 ML 250 MG in PREMIX 1 EA IV SCH (22:00)
[2022-09-14] MEDS: GUAIFENESIN/D-METHORPHAN HB 5 ML UDC PO PRN (23:27)
[2022-09-15] VITALS: BP 117/54
[2022-09-15] MEDS: IPRATROPIUM NEB FS 0.5 MG/2.5 ML AMPUL.NEB NEB SCH ×3 (02:25→13:52)
[2022-09-15] MEDS: ALBUTEROL FS 2.5 MG/0.5 ML VIAL.NEB NEB SCH ×3 (02:25→13:52)
[2022-09-15 04:00] VITALS: BP 122/52
[2022-09-15] MEDS: methylPREDNISolone SOD SUCC 40 MG/ML VIAL IV SCH ×2 (05:25→13:06)
[2022-09-15] MEDS: CLOPIDOGREL BISULFATE 75 MG TABLET PO SCH (05:26)
[2022-09-15 06:44] LABS: HEMATOCRIT 38 % (33-45); HEMOGLOBIN 12.3 g/dL (11.5-14.8); LYMPHOCYTES # (AUTO) 0.3 K/uL (0.8-4.8); LYMPHOCYTES % (AUTO) 2.3 % (20.0-44.0); MEAN CORPUSCULAR HGB CONC 33 g/dl (31.0-36.0); MEAN CORPUSCULAR VOLUME 95 fL (82-100); MONOCYTES # (AUTO) 0.5 K/uL (0.1-1.30); MONOCYTES % (AUTO) 3.7 % (2.0-12.0); NEUTROPHILS # (AUTO) 11.9 K/uL (1.8-8.9); PLATELET COUNT (AUTO) 167 K/uL (150-450); RED BLOOD CELL COUNT(AUTO) 3.94 MIL/uL (4.0-5.2); WHITE BLOOD COUNT (AUTO) 12.6 K/uL (4.3-11.0)
[2022-09-15] MEDS: BLOOD SUGAR DIAGNOSTIC 1 EACH STRIP VI SCH ×3 (06:49→17:39)
[2022-09-15] MEDS: INSULIN REGULAR, HUMAN 100 UNIT/ML 3 ML VIAL SQ PRN ×2 (06:51→11:54)
--- NOTE | 2022-09-15 07:00 | NUR ---
SHRIMP POND LABORER OPENING NOTES: RECEIVED PT IN BED AWAKE, ALERT AND ORIENTED X 4 AND ABLE TO VERBALIZED NEEDS. NO SOB OR CARDIAC DISTRESS NOTED,ON TELE/ACCOUNT DEVELOPMENT ASSOCIATE WITH CURRENT READING SR @77 BPM. IV ACCESS ON R HAND GAUGE 20 PATENT, INTACT AND SALINE LOCKED. SAFETY PRECAUTIONS MAINTAINED: BED LOCKED AND IN LOWEST POSITION, SIDE RAILS UP X 2. CALL LIGHT IN EASY REACH AND WILL MONITOR PT ACCORDINGLY.
--- NOTE | 2022-09-15 07:15 | NUR ---
INSIDE SALES PERSON CLOSING NOTES PT IN BED, AWAKE AT THIS TIME, A/O X4, COOPERATIVE AND ABLE TO MAKE NEEDS KNOWN. STABLE ON O2 2L VIA NC WITH NO S/S OF SOB OR ACUTE DISTRESS NOTED. ON TELE MONITOR SHOWING SINUS RHYTHM, HR 70. IV ACCESS RIGHT HAND #20G, PATENT AND INTACT, SL. ALL CARE PROVIDED AND ADMINISTERED MEDICATIONS TOLERATED WELL. SAFETY MEASURES MAINTAINED: BED IN LOWEST AND LOCKED POSITION; SIDE RAILS UP X2; CALL LIGHT AND TRAY TABLE WITHIN REACH. WILL ENDORSE JOSE TO ACADEMIC AFFAIRS VICE PRESIDENT NURSE.
[2022-09-15 07:40] LABS: CALCIUM, SERUM 8.7 mg/dL (8.5-10.1); CARBON DIOXIDE 26 mmol/L (21-32); CHLORIDE 103 mmol/L (98-107); CREATININE 1.4 mg/dL (0.6-1.3); GLUCOSE 192 mg/dL (74-106); POTASSIUM 3.9 mmol/L (3.5-5.1); SODIUM SERUM 139 mmol/L (136-145); UREA NITROGEN, BLOOD 47 mg/dL (7-18)
[2022-09-15 08:00] VITALS: BP 101/50
[2022-09-15] MEDS ORDERED: IPRA3AMP23 IH (08:16)
[2022-09-15] MEDS ORDERED: LEVO500T90 PO (08:16)
[2022-09-15] MEDS ORDERED: PRED20TA PO (08:16)
[2022-09-15] MEDS: GABAPENTIN 100 MG CAPSULE PO SCH ×2 (08:29→16:11)
[2022-09-15] MEDS: ESCITALOPRAM OXALATE (10 MG) 10 MG TABLET PO SCH (08:29)
[2022-09-15] MEDS: FUROSEMIDE 40 MG TABLET PO SCH (08:29)
[2022-09-15] MEDS: CARVEDILOL 3.125 MG TABLET PO SCH ×2 (08:31→16:11)
[2022-09-15] MEDS: SACUBITRIL PO SCH (08:32)
[2022-09-15] MEDS: VALSARTAN PO SCH (08:32)
[2022-09-15] MEDS ORDERED: CYANOCOBALAMIN 500 MCG TABLET PO SCH (09:00)
[2022-09-15] MEDS ORDERED: CHOLECALCIFEROL 1,000 UNIT TABLET (VIT D3) PO SCH (09:00)
[2022-09-15] MEDS ORDERED: VITAMIN B COMP W-C 1 TAB TABLET PO SCH (09:00)
[2022-09-15] MEDS ORDERED: LINAGLIPTIN 5 MG TABLET PO SCH (09:00)
[2022-09-15] MEDS ORDERED: EMPAGLIFLOZIN 25 MG PO SCH (09:00)
[2022-09-15] MEDS ORDERED: glipiZIDE 5 MG TABLET PO SCH (09:00)
[2022-09-15] MEDS ORDERED: ATORVASTATIN 40 MG TABLET PO SCH (09:00)
[2022-09-15] MEDS: GUAIFENESIN/D-METHORPHAN HB 5 ML UDC PO PRN (09:04)
[2022-09-15 16:00] VITALS: BP 120/53
[2022-09-15 16:11] VITALS: BP 120/60
[2022-09-15] MEDS: *INSULIN REGULAR(HUMULIN R)HUM 100 UNIT/ML VIAL SQ PRN (17:40)
--- NOTE | 2022-09-15 18:21 | NUR ---
DISCHARGE NOTES: PATIENT DC TO SNF, PATIENT ALERT AND ORIENTED X 4 WITH EPISODES OF FORGETFULNESS AND ABLE TO VERBALIZED NEEDS. NO SOB OR CARDIAC DISTRESS, OFF ON O2 AND PT TOLERATING 90-95% ROOM AIR, ALEK WELL. SUBSTATION OPERATOR APPRENTICE HANDED TO BOBBY (), HOME MEDS GIVEN TO PT, ALL BELONGINGS WITH PT, PRESCRIPTION GIVEN TO EMT. DISCHARGE INSTRUCTIONS GIVEN TO EMT. REPORT GIVEN TO KENDY PARK. REMOVED IV ACCESS AND KEPT THE IDENTIFICATION BAND IN PLACE. PT LEFT THE UNIT STABLE VIA GURNEY. VS WNL UPON DC.
== END 2022-09-15 18:45 | DRG 190 ==
LOC: ER 17:57 → TELE 21:49 → MED 09-15 10:13
PROVIDERS: ADMIT Internal Medicine; ATTEND Internal Medicine
DX: J44.1 Chronic obstructive pulmonary disease with (acute) exacerbation (principal); J96.00 Acute respiratory failure, unspecified whether with hypoxia or hypercapnia; I50.22 Chronic systolic (congestive) heart failure; I11.0 Hypertensive heart disease with heart failure; Z20.822 Contact with and (suspected) exposure to COVID-19; E78.5 Hyperlipidemia, unspecified; I25.10 Atherosclerotic heart disease of native coronary artery without angina pectoris; E78.00 Pure hypercholesterolemia, unspecified; Z85.118 Personal history of other malignant neoplasm of bronchus and lung; M81.0 Age-related osteoporosis without current pathological fracture; Z79.51 Long term (current) use of inhaled steroids; Z79.02 Long term (current) use of antithrombotics/antiplatelets; Z79.84 Long term (current) use of oral hypoglycemic drugs; Z79.899 Other long term (current) drug therapy; Z95.0 Presence of cardiac pacemaker; E11.9 Type 2 diabetes mellitus without complications; F17.200 Nicotine dependence, unspecified, uncomplicated; G93.89 Other specified disorders of brain; Z92.3 Personal history of irradiation; W19.XXXA Unspecified fall, initial encounter; Y92.9 Unspecified place or not applicable; S09.90XA Unspecified injury of head, initial encounter
CPT/HCPCS: 36415; 70450-TC; 71045-TC; 80048-TC; 80061-TC; 80076-TC; 82962-TC; 83880; 84443-TC; 84484-TC; 85025-TC; 87081-TC; 93307-TC; 94799-TC; 97116-TC; 97530-TC; A4216; C9803; G0378; J1650; J1815; J1940; J1956; J2920; J2930; J7030; J7040; J7050

== ENCOUNTER 2023-12-25 06:56 | Inpatient (IN) | payer OTHER ==
[~2023-12-25] VITALS: Ht 160 cm; Wt 59.9 kg
[~2023-12-25 06:56] MED LIST changes: +CARV3.122 PO; +CHOL100043 PO; +CLOP75TA15 PO; +CYAN-51 PO; -DAPA10TA PO; +EMPA25TA PO; +ESCI10TA PO; +FOLI0.4T6 PO; +FURO40TA5 PO; +GABA-532 PO; +GLIP5TAB13 PO; +IPRA3AMP23 IH; +LEVO500T90 PO; -LISI40TA15 PO; +MELO-105 PO; +PRED20TA PO; +SACU1TAB PO; +SITA50TA PO; +UMEC1BLS INH; +VITA1TAB56 PO
[2023-12-25 07:42] LABS: BASOPHILS % (AUTO) 1.1 % (0.0-2.0); EOSINOPHILS # (AUTO) 0.2 K/uL (0.0-0.7); EOSINOPHILS % (AUTO) 4.9 % (0.0-6.0); HEMATOCRIT 32 % (33-45); HEMOGLOBIN 10.8 g/dL (11.5-14.8); LYMPHOCYTES # (AUTO) 0.4 K/uL (0.8-4.8); LYMPHOCYTES % (AUTO) 9.7 % (20.0-44.0); MEAN CORPUSCULAR HEMOGLOBIN 32 PG (26.0-33.0); MEAN CORPUSCULAR HGB CONC 33 g/dl (31.0-36.0); MEAN CORPUSCULAR VOLUME 96 fL (82-100); MONOCYTES # (AUTO) 0.5 K/uL (0.1-1.30); MONOCYTES % (AUTO) 11.9 % (2.0-12.0); NEUTROPHILS # (AUTO) 3.3 K/uL (1.8-8.9); NEUTROPHILS % (AUTO) 72.4 % (43.0-81.0); PLATELET COUNT (AUTO) 190 K/uL (150-450); RED BLOOD CELL COUNT(AUTO) 3.38 MIL/uL (4.0-5.2); RED CELL DISTRIBUTION WIDTH 14.8 % (11.5-15.0); WHITE BLOOD COUNT (AUTO) 4.5 K/uL (4.3-11.0)
[2023-12-25] MEDS ORDERED: IPRATROPIUM NEB FS 0.5 MG/2.5 ML AMPUL.NEB ONE (07:52)
[2023-12-25] MEDS ORDERED: ALBUTEROL FS 2.5 MG/3 ML VIAL.NEB ONE (07:52)
[2023-12-25] MEDS ORDERED: methylPREDNISolone SOD SUCC 125 MG/2ML VIAL ONE (07:54)
[2023-12-25] MEDS: methylPREDNISolone SOD SUCC 125 MG/2ML VIAL IV ONE (07:55)
[2023-12-25] MEDS ORDERED: OSELTAMIVIR PHOSPHATE 75 MG CAPSULE ONE (07:59)
[2023-12-25 08:00] VITALS: O2SAT 94
[2023-12-25] MEDS: ALBUTEROL FS 2.5 MG/3 ML VIAL.NEB CONTNEB ONE (08:00)
[2023-12-25] MEDS: IPRATROPIUM NEB FS 0.5 MG/2.5 ML AMPUL.NEB NEB ONE (08:00)
[2023-12-25] MEDS: OSELTAMIVIR PHOSPHATE 75 MG CAPSULE PO ONE (08:00)
[2023-12-25 08:03] LABS: CARBON DIOXIDE 30 mmol/L (21-32); CHLORIDE 102 mmol/L (98-107); CREATININE 1.7 mg/dL (0.6-1.3); GLUCOSE 80 mg/dL (74-106); POTASSIUM 3.7 mmol/L (3.5-5.1); SODIUM SERUM 140 mmol/L (136-145); UREA NITROGEN, BLOOD 34 mg/dL (7-18)
[2023-12-25 08:20] LABS: ALANINE AMINOTRANSFERASE 21 U/L (12-78); ALBUMIN 3.1 g/dL (3.4-5.0); ALKALINE PHOSPHATASE 49 U/L (46-116); ASPARTATE AMINOTRANSFERASE 20 U/L (15-37); BILIRUBIN,DIRECT 0.1 mg/dL (0.0-0.2); BILIRUBIN,TOTAL 0.5 mg/dL (0.2-1.0); NT-PRO BNP 4871 pg/mL (0-125); TOTAL PROTEIN, SERUM 6.5 g/dL (6.4-8.2)
[2023-12-25 09:02] VITALS: O2SAT 100
[2023-12-25] MEDS ORDERED: MELOXICAM 7.5 MG TABLET PO PRN (14:00)
[2023-12-25] MEDS ORDERED: IPRATROPIUM NEB FS 0.5 MG/2.5 ML AMPUL.NEB NEB PRN (14:30)
[2023-12-25] MEDS ORDERED: ALBUTEROL FS 2.5 MG/0.5 ML VIAL.NEB NEB PRN (14:30)
[2023-12-25] MEDS ORDERED: DEXTROSE 50%-WATER 50 ML DISP.SYRIN IV PRN (14:30)
[2023-12-25] MEDS: AZITHROMYCIN 250 MG TABLET PO SCH (15:06)
[2023-12-25] MEDS: CEFTRIAXONE 1 G in IV D5W 50 ML IV SCH (15:07)
[2023-12-25] MEDS: CARVEDILOL 3.125 MG TABLET PO SCH (17:00)
[2023-12-25 17:17] VITALS: BP 111/58; TEMP 98.2; O2SAT 95
[2023-12-25] MEDS: VALSARTAN PO SCH (17:19)
[2023-12-25] MEDS: SACUBITRIL PO SCH (17:19)
[2023-12-25] MEDS: GABAPENTIN 100 MG CAPSULE PO SCH (17:19)
[2023-12-25] MEDS: BLOOD SUGAR DIAGNOSTIC 1 EACH STRIP VI SCH (17:20)
[2023-12-25] MEDS: *INSULIN REGULAR(HUMULIN R)HUM 100 UNIT/ML VIAL SQ PRN (17:24)
[2023-12-25 20:00] VITALS: BP 109/64; TEMP 98.1; O2SAT 94
[2023-12-25] MEDS: INSULIN REGULAR, HUMAN 100 UNIT/ML 3 ML VIAL SQ PRN (21:39)
[2023-12-26] VITALS: BP 112/50; TEMP 98; O2SAT 96
[2023-12-26 04:00] VITALS: BP 123/64; TEMP 98; O2SAT 94
[2023-12-26 07:10] LABS: HEMATOCRIT 33 % (33-45); HEMOGLOBIN 10.8 g/dL (11.5-14.8); LYMPHOCYTES # (AUTO) 0.4 K/uL (0.8-4.8); LYMPHOCYTES % (AUTO) 5.8 % (20.0-44.0); MEAN CORPUSCULAR HEMOGLOBIN 32 PG (26.0-33.0); MEAN CORPUSCULAR HGB CONC 33 g/dl (31.0-36.0); MEAN CORPUSCULAR VOLUME 96 fL (82-100); MONOCYTES # (AUTO) 0.3 K/uL (0.1-1.30); MONOCYTES % (AUTO) 5.1 % (2.0-12.0); NEUTROPHILS # (AUTO) 5.8 K/uL (1.8-8.9); NEUTROPHILS % (AUTO) 89.1 % (43.0-81.0); PLATELET COUNT (AUTO) 205 K/uL (150-450); RED BLOOD CELL COUNT(AUTO) 3.42 MIL/uL (4.0-5.2); RED CELL DISTRIBUTION WIDTH 14.7 % (11.5-15.0); WHITE BLOOD COUNT (AUTO) 6.6 K/uL (4.3-11.0)
[2023-12-26 07:58] LABS: CALCIUM, SERUM 9.1 mg/dL (8.5-10.1); CARBON DIOXIDE 27 mmol/L (21-32); CHLORIDE 103 mmol/L (98-107); CREATININE 1.3 mg/dL (0.6-1.3); GLUCOSE 143 mg/dL (74-106); POTASSIUM 3.8 mmol/L (3.5-5.1); SODIUM SERUM 141 mmol/L (136-145); UREA NITROGEN, BLOOD 36 mg/dL (7-18)
[2023-12-26 08:00] VITALS: BP 115/90; TEMP 96.7; O2SAT 93
[2023-12-26] MEDS: ESCITALOPRAM OXALATE (10 MG) 10 MG TABLET PO SCH (08:19)
[2023-12-26] MEDS: EMPAGLIFLOZIN 25 MG TABLET PO SCH (08:19)
[2023-12-26] MEDS: LINAGLIPTIN 5 MG TABLET PO SCH (08:19)
[2023-12-26] MEDS: CLOPIDOGREL BISULFATE 75 MG TABLET PO SCH (08:19)
[2023-12-26] MEDS: glipiZIDE 5 MG TABLET PO SCH (08:19)
[2023-12-26] MEDS: ATORVASTATIN 40 MG TABLET PO SCH (08:20)
[2023-12-26] MEDS: FOLIC ACID 1 MG TABLET PO SCH (08:21)
[2023-12-26 12:00] VITALS: BP 107/58; TEMP 96.7; O2SAT 92
[2023-12-26 14:35] VITALS: O2SAT 97
[2023-12-26] MEDS: IPRATROPIUM NEB FS 0.5 MG/2.5 ML AMPUL.NEB NEB SCH (14:35)
[2023-12-26] MEDS: ALBUTEROL FS 2.5 MG/0.5 ML VIAL.NEB NEB SCH (14:35)
== END 2023-12-26 18:05 | disposition home or self-care (01) | DRG 193 ==
LOC: ER 07:04 → TELE1 11:46
PROVIDERS: ADMIT Internal Medicine; ATTEND Internal Medicine
DX: J15.9 Unspecified bacterial pneumonia (principal); J96.20 Acute and chronic respiratory failure, unspecified whether with hypoxia or hypercapnia; I50.22 Chronic systolic (congestive) heart failure; J44.0 Chronic obstructive pulmonary disease with (acute) lower respiratory infection; J44.1 Chronic obstructive pulmonary disease with (acute) exacerbation; N17.9 Acute kidney failure, unspecified; J20.9 Acute bronchitis, unspecified; I11.0 Hypertensive heart disease with heart failure; D64.9 Anemia, unspecified; E11.9 Type 2 diabetes mellitus without complications; E78.5 Hyperlipidemia, unspecified; F17.210 Nicotine dependence, cigarettes, uncomplicated; I25.10 Atherosclerotic heart disease of native coronary artery without angina pectoris; Z79.84 Long term (current) use of oral hypoglycemic drugs; Z85.118 Personal history of other malignant neoplasm of bronchus and lung; Z92.3 Personal history of irradiation; Z99.81 Dependence on supplemental oxygen; Z20.822 Contact with and (suspected) exposure to COVID-19; M81.0 Age-related osteoporosis without current pathological fracture; Z79.899 Other long term (current) drug therapy; Z95.0 Presence of cardiac pacemaker
CPT/HCPCS: 36415; 71045-TC; 80048-TC; 80076-TC; 82962-TC; 83605-TC; 83880; 84484-TC; 85025-TC; 87040-TC; A6403; G0378; J0696; J1815; J2930; J7060

== ENCOUNTER 2024-02-23 13:22 | Emergency (ER) | payer OTHER ==
[~2024-02-23] VITALS: Ht 144.8 cm; Wt 54.9 kg
[~2024-02-23 13:22] MED LIST changes: -CHOL100043 PO; -CYAN-51 PO; -IPRA3AMP23 IH; -PRED20TA PO; -VITA1TAB56 PO
[2024-02-23 14:27] LABS: BASOPHILS % (AUTO) 0.5 % (0.0-2.0); EOSINOPHILS # (AUTO) 0.2 K/uL (0.0-0.7); HEMATOCRIT 32 % (33-45); HEMOGLOBIN 10.6 g/dL (11.5-14.8); LYMPHOCYTES # (AUTO) 0.5 K/uL (0.8-4.8); LYMPHOCYTES % (AUTO) 6.4 % (20.0-44.0); MEAN CORPUSCULAR HEMOGLOBIN 31 PG (26.0-33.0); MEAN CORPUSCULAR HGB CONC 33 g/dl (31.0-36.0); MEAN CORPUSCULAR VOLUME 94 fL (82-100); MONOCYTES # (AUTO) 0.4 K/uL (0.1-1.30); MONOCYTES % (AUTO) 5.8 % (2.0-12.0); NEUTROPHILS # (AUTO) 6.4 K/uL (1.8-8.9); NEUTROPHILS % (AUTO) 85.3 % (43.0-81.0); PLATELET COUNT (AUTO) 204 K/uL (150-450); RED BLOOD CELL COUNT(AUTO) 3.41 MIL/uL (4.0-5.2); RED CELL DISTRIBUTION WIDTH 16.4 % (11.5-15.0); WHITE BLOOD COUNT (AUTO) 7.5 K/uL (4.3-11.0)
[2024-02-23 14:33] LABS: CALCIUM, SERUM 9.1 mg/dL (8.5-10.1); CARBON DIOXIDE 32 mmol/L (21-32); CHLORIDE 100 mmol/L (98-107); CREATININE 1.2 mg/dL (0.6-1.3); GLUCOSE 73 mg/dL (74-106); POTASSIUM 3.9 mmol/L (3.5-5.1); SODIUM SERUM 136 mmol/L (136-145); UREA NITROGEN, BLOOD 16 mg/dL (7-18)
[2024-02-23 14:46] LABS: ALANINE AMINOTRANSFERASE 28 U/L (12-78); ALBUMIN 3.4 g/dL (3.4-5.0); ALKALINE PHOSPHATASE 47 U/L (46-116); ASPARTATE AMINOTRANSFERASE 18 U/L (15-37); BILIRUBIN,DIRECT 0.2 mg/dL (0.0-0.2); BILIRUBIN,TOTAL 0.7 mg/dL (0.2-1.0); NT-PRO BNP 2636 pg/mL (0-125); TOTAL PROTEIN, SERUM 6.9 g/dL (6.4-8.2)
[2024-02-23] MEDS ORDERED: GUAIFENESIN/D-METHORPHAN HB 5 ML UDC ONE (15:38)
[2024-02-23] MEDS ORDERED: methylPREDNISolone SOD SUCC 125 MG/2ML VIAL ONE (15:38)
[2024-02-23] MEDS ORDERED: IPRATROPIUM NEB FS 0.5 MG/2.5 ML AMPUL.NEB ONE (15:43)
[2024-02-23] MEDS ORDERED: ALBUTEROL FS 2.5 MG/3 ML VIAL.NEB ONE (15:43)
[2024-02-23] MEDS: methylPREDNISolone SOD SUCC 125 MG/2ML VIAL IV ONE (15:43)
[2024-02-23] MEDS: GUAIFENESIN/D-METHORPHAN HB 5 ML UDC PO ONE (15:43)
[2024-02-23] MEDS ORDERED: AZIT500T PO (15:49)
[2024-02-23] MEDS ORDERED: PRED50TA PO (15:49)
[2024-02-23] MEDS: ALBUTEROL FS 2.5 MG/3 ML VIAL.NEB NEB ONE (15:53)
[2024-02-23] MEDS: IPRATROPIUM NEB FS 0.5 MG/2.5 ML AMPUL.NEB NEB ONE (15:53)
[2024-02-23 15:54] VITALS: O2SAT 95
[2024-02-23 16:06] VITALS: O2SAT 100
[2024-02-23 16:18] VITALS: BP 131/56; TEMP 98.4; O2SAT 100
== END 2024-02-23 16:18 | disposition home or self-care (01) ==
LOC: ER 13:32
DX: J44.1 Chronic obstructive pulmonary disease with (acute) exacerbation (principal); R05.9 Cough, unspecified; R09.81 Nasal congestion; I11.0 Hypertensive heart disease with heart failure; I50.9 Heart failure, unspecified; E78.5 Hyperlipidemia, unspecified; E11.9 Type 2 diabetes mellitus without complications; F17.200 Nicotine dependence, unspecified, uncomplicated; Z79.899 Other long term (current) drug therapy
CPT/HCPCS: 99285; 96374; 93005; 71045; 85025; 80048; 80076; 36415; 84484; 83880; 94640; J2930